=== PATIENT | male | born 1940 | race American Indian/Alaskan Native ===

== ENCOUNTER 2018-04-27 18:10 | Emergency (ER) | payer MEDICARE ==
[2018-04-27 18:33] VITALS: BMI 33.0
[2018-04-27 18:36] VITALS: RESP 16; TEMP 98.1
--- NOTE | 2018-04-27 19:03 | C.PDOC ---
History Of Present Illness 77 y/o M p/w swallowing difficulty x 1 year. Patient states when he swallows food, he feels like it gets stuck. He states he had 2 endoscopies in the past where they "went down and made it bigger." He denies any current symptoms. He denies fever, chills, dyspnea, vomiting, abdominal pain, chest pain. Time Seen by Provider: 04/27/18 18:53 Chief Complaint (Nursing): ENT Problem Past Medical History Vital Signs: Last Vital Signs Temp 98.1 F 04/27/18 18:33 Pulse 77 04/27/18 18:33 Resp 16 04/27/18 18:33 BP 143/82 04/27/18 18:33 Pulse Ox 99 04/27/18 19:03 - Medical History PMH: CHF, HTN Family History: States: Unknown Family Hx - Social History Hx Alcohol Use: No Hx Substance Use: No Review Of Systems Except As Marked, All Systems Reviewed And Found Negative. Constitutional: Negative for: Fever Cardiovascular: Negative for: Chest Pain Gastrointestinal: Negative for: Abdominal Pain Physical Exam - Physical Exam Additional Physical Exam Comments: Gen: NAD Head: NC Eyes: No scleral icterus ENT: MMM, no foreign bodies seen, no edema Neck: Supple Chest: No tenderness CV: Regular rate Lungs: CTA b/l Abd: Soft, NT Back: No CVA tenderness Extremities: No edema Skin: No rash Neuro: Alert, no focal deficit ED Course And Treatment O2 Sat by Pulse Oximetry: 99 Medical Decision Making Medical Decision Making: Chronic dysphagia without any active symptoms. Will require follow up with GI. Disposition - Disposition Referrals: Kody Li MD [Staff Provider] - Disposition: HOME/ ROUTINE Disposition Time: 19:00 Condition: STABLE Instructions: Dysphagia (DC) Forms: [employer] (Burkinan) - Clinical Impression Clinical Impression: Dysphagia
[2018-04-27 19:17] VITALS: BP 130/84; PULSE 82; O2SAT 98
== END 2018-04-27 19:17 | disposition home or self-care (01) ==
LOC: C.ER 18:10
DX: R13.10 Dysphagia, unspecified (principal)

== ENCOUNTER 2018-06-21 14:09 | Emergency (ER) | payer MEDICARE ==
[2018-06-21 14:09] VITALS: BMI 33.0
[2018-06-21 14:34] VITALS: TEMP 98.8
[2018-06-21] MEDS ORDERED: Sodium Chloride 0.9% 1,000 ML IV SCH (15:30)
[2018-06-21] MEDS ORDERED: Iodixanol 320 MG/ML 100 ML BOTTLE IV ONE (15:36)
[2018-06-21] MEDS ORDERED: Sodium Chloride 0.9% 1,000 ML ONE (15:38)
[2018-06-21 15:59] LABS: BASO % 0.8 % (0.0-2.0); EOS # 0.1 K/uL (0.0-0.7); EOS % 2.4 % (0.0-4.0); HEMOGLOBIN 11.6 g/dL (12.0-18.0); LYMPH # 1.3 K/uL (1.0-4.3); LYMPH % 25.4 % (20.0-40.0); MEAN CELL VOLUME 85.4 fL (80.0-94.0); MEAN CORPUSCULAR HEMOGLOBIN 27.8 pg (27.0-31.0); MEAN CORPUSCULAR HGB CONC 32.6 g/dL (33.0-37.0); MEAN PLATELET VOLUME 8.3 fL (7.2-11.7); MONO # 0.6 K/uL (0.0-0.8); MONO % 10.6 % (0.0-10.0); NEUT # 3.2 K/uL (1.8-7.0); NEUT % 60.8 % (50.0-75.0); RBC 4.16 Mil/uL (4.40-5.90); RED CELL DISTRIBUTION WIDTH 16.5 % (11.5-14.5); WHITE BLOOD COUNT 5.2 K/uL (4.8-10.8)
[2018-06-21 16:14] LABS: BLOOD UREA NITROGEN 16 mg/dL (9-20); CALCIUM 8.8 mg/dl (8.6-10.4); GFR NON-AFRICAN AMERICAN 59; LIPASE 117 U/L (23-300)
[2018-06-21 16:27] LABS: ALB/GLOB RATIO 1.2 (1.0-2.1); ALBUMIN 4.1 g/dL (3.5-5.0); ALT/SGPT 16 U/L (21-72); AST/SGOT 36 U/L (17-59)
[2018-06-21 16:54] LABS: SQUAMOUS EPITHIAL 1 /hpf (0-5); URINE BILIRUBIN NEGATIVE (NEGATIVE); URINE BLOOD NEGATIVE (NEGATIVE); URINE CLARITY Clear (Clear); URINE COLOR Yellow (YELLOW); URINE GLUCOSE (UA) NORMAL (Normal); URINE LEUKOCYTE ESTERASE NEG Leu/uL (Negative); URINE PROTEIN NEGATIVE (NEGATIVE)
--- NOTE | 2018-06-21 17:06 | CT ---
Date of service: 06/21/2018 PROCEDURE: CT Abdomen and Pelvis with contrast HISTORY: Lower abdominal tenderness COMPARISON: None. TECHNIQUE: Intravenous contrast dose: 100 cc Visipaque Radiation dose: Total exam DLP = 320 1316.19 mGy-cm. This CT exam was performed using one or more of the following dose reduction techniques: Automated exposure control, adjustment of the mA and/or kV according to patient size, and/or use of iterative reconstruction technique. FINDINGS: LOWER THORAX: Unremarkable. LIVER: Unremarkable. No gross lesion or ductal dilatation. GALLBLADDER AND BILE DUCTS: Unremarkable. PANCREAS: Unremarkable. No gross lesion or ductal dilatation. SPLEEN: Unremarkable. ADRENALS: Unremarkable. No mass. KIDNEYS AND URETERS: Unremarkable. No hydronephrosis. No solid mass. VASCULATURE: Unremarkable. No aortic aneurysm. Atherosclerotic calcification and mural plaque present. Findings are seen throughout the aorta and iliac arteries. BOWEL: Unremarkable. No obstruction. No gross mural thickening. APPENDIX: A normal appendix is visualized in it's entirety. PERITONEUM: Unremarkable. No free fluid. No free air. LYMPH NODES: Unremarkable. No enlarged lymph nodes. BLADDER: Unremarkable. REPRODUCTIVE: Unremarkable. BONES: No acute fracture. Multilevel degenerative change primarily affecting lower lumbar spine. OTHER FINDINGS: None. IMPRESSION: Cholelithiasis without CT evidence of acute cholecystitis. Additional benign and/or incidental findings described above.
[2018-06-21 17:08] VITALS: BP 148/86; PULSE 68; RESP 16
--- NOTE | 2018-06-21 17:09 | C.PDOC ---
History Of Present Illness 77 year old male presents to the ED complaining of lower abdominal pain since yesterday. Reports slight decrease of PO intake. Denies any vomiting, diarrhea, nausea, fever chills, or any urinary symptoms. Chief Complaint (Nursing): Abdominal Pain History Per: Patient History/Exam Limitations: no limitations Onset/Duration Of Symptoms: Hrs Current Symptoms Are (Timing): Still Present Location Of Pain/Discomfort: Suprapubic Associated Symptoms: Loss Of Appetite. denies: Fever, Chills, Nausea, Vomiting, Diarrhea Past Medical History Reviewed: Historical Data, Nursing Documentation, Vital Signs Vital Signs: Last Vital Signs Temp 98.8 F 06/21/18 14:31 Pulse 89 06/21/18 14:31 Resp 18 06/21/18 14:31 BP 95/59 L 06/21/18 14:31 Pulse Ox 99 06/21/18 14:31 - Medical History PMH: CHF, HTN Other Surgeries: Hx of surgeries Family History: States: No Known Family Hx - Social History Hx Alcohol Use: No Hx Substance Use: No Review Of Systems Except As Marked, All Systems Reviewed And Found Negative. Constitutional: Positive for: Other (decreased PO intake). Negative for: Fever, Chills Gastrointestinal: Positive for: Abdominal Pain. Negative for: Nausea, Vomiting, Diarrhea Genitourinary: Negative for: Dysuria, Hematuria Physical Exam - Physical Exam Appears: Non-toxic Skin: Warm, Dry Head: Normacephalic Eye(s): bilateral: Normal Inspection Neck: Supple Chest: Symmetrical Cardiovascular: Rhythm Regular Respiratory: Normal Breath Sounds, No Rales, No Rhonchi, No Wheezing Gastrointestinal/Abdominal: Soft, Tenderness (minimal tenderness to lower abd quadrant ), No Distention, No Guarding, No Rebound Extremity: Normal ROM Neurological/Psych: Oriented x3, Normal Speech Gait: Steady ED Course And Treatment - Laboratory Results Result Diagrams: 06/21/18 15:55 06/21/18 15:55 O2 Sat by Pulse Oximetry: 99 (RA) Pulse Ox Interpretation: Normal - CT Scan/US CT Pel Other Rad Studies (CT/US): Read By Radiologist, Radiology Report Reviewed CT/US Interpretation: Accession No. : [id number]. Patient Name / ID : CARLTON MONTANO / [id number]. Exam Date : 06/21/2018 16:45:47 ( Approved ). Study Comment : Sex / Age : M / 77Y. Creator : Arthur Raymond. Dictator : Vince Zuñiga MD. Surgical Attendant : Syrup Shed Supervisor : Vince Zuñiga MD. Approver2 : Report Date : 06/21/2018 16:55:30. My Comment : . Date of service: 06/21/2018. PROCEDURE: CT Abdomen and Pelvis with contrast. HISTORY: Lower abdominal tenderness. COMPARISON: None. TECHNIQUE: Intravenous contrast dose: 100 cc Visipaque. Radiation dose: Total exam DLP = 320 1316.19 mGy-cm. This CT exam was performed using one or more of the following dose reduction techniques: Automated exposure control, adjustment of the mA and/or kV according to patient size, and/or use of iterative reconstruction technique. FINDINGS: LOWER THORAX: Unremarkable. LIVER: Unremarkable. No gross lesion or ductal dilatation. GALLBLADDER AND BILE DUCTS: Unremarkable. PANCREAS: Unrem arkable. No gross lesion or ductal dilatation. SPLEEN: Unremarkable. ADRENALS: Unremarkable. No mass. KIDNEYS AND URETERS: Unremarkable. No hydronephrosis. No solid mass. VASCULATURE: Unremarkable. No aortic aneurysm. Atherosclerotic calcification and mural plaque present. Findings are seen throughout the aorta and iliac arteries. BOWEL: Unremarkable. No obstruction. No gross mural thickening. APPENDIX: A normal appendix is visualized in it's entirety. PERITONEUM: Unremarkable. No free fluid. No free air. LYMPH NODES: Unremarkable. No enlarged lymph nodes. BLADDER: Unremarkable. REPRODUCTIVE: Unremarkable. BONES: No acute fracture. Multilevel degenerative change prima rily affecting lower lumbar spine. OTHER FINDINGS: None. IMPRESSION: Cholelithiasis without CT evidence of acute cholecystitis. Additional benign and/or incidental findings described above. Medical Decision Making Medical Decision Making: Orders: - CT abd/pel - Labwork - UA - IV Fluids Disposition - Disposition Referrals: [facility] Eliseo Johnston, [Non-Staff] - Disposition: HOME/ ROUTINE Disposition Time: 17:20 Condition: IMPROVED Additional Instructions: DUSTY VINCENT, thank you for letting us take care of you today. The emergency medical care you received today was directed at your acute symptoms. If you were prescribed any medication, please fill it and take as directed. It may take several days for your symptoms to resolve. Return to the Emergency Department if your symptoms worsen, do not improve, or if you have any other problems. Please contact your doctor or call one of the physicians/clinics you have been referred to that are listed on the Patient Visit Information form that is included in your discharge packet. Bring any paperwork you were given at discharge with you along with any medications you are taking to your follow up visit. Our treatment cannot replace ongoing medical care by a primary care provider outside of the emergency department. Thank you for allowing the [facility] team to be part of your care today. Follow up with your primary care doctor and the specialist as scheduled for re- evaluation and further management. Prescriptions: Ibuprofen [Motrin] 600 mg PO Q6 PRN #20 tab PRN Reason: Pain, Moderate (4-7) Instructions: Acute Abdomen (Belly Pain), Adult (DC) Forms: [employer] (Danish) - Clinical Impression Clinical Impression: Abdominal pain
[2018-06-21 17:10] VITALS: O2SAT 99
== END 2018-06-21 18:03 | disposition home or self-care (01) ==
LOC: C.ER 14:09
DX: R10.9 Unspecified abdominal pain (principal); I11.0 Hypertensive heart disease with heart failure; I50.9 Heart failure, unspecified
CPT/HCPCS: 74177; 80053; 81001; 83690; 85025; 87086; 99284; J7030; Q9967

== ENCOUNTER 2018-07-05 02:15 | Inpatient (IN) | payer MEDICARE ==
[2018-07-05 02:16] VITALS: BMI 33.0
--- NOTE | 2018-07-05 02:29 | C.PDOC ---
History Of Present Illness 77 y/o male comes in complaining of dizziness x 2 days. States he feels noise in his ear and denies any fever, chills, weakness, visual changes, nausea, or vomiting. Patient is using a hearing aid in his right ear. Time Seen by Provider: 07/05/18 02:28 Chief Complaint (Nursing): Dizziness/Lightheaded History Per: Patient History/Exam Limitations: no limitations Onset/Duration Of Symptoms: Days Current Symptoms Are (Timing): Still Present Activity At Onset Of Symptoms: Standing Associated Symptoms Preceding Syncopal Episode: Lightheadedness, Vertigo Seizure Or Post-ictal Symptoms: None Fall Associated With With Symptoms: No Severity: None Pain Scale Rating Of: 0 Recent travel outside of the [place]: No Additional History Per: Patient - Symptoms Of CVA Associated Symptoms: Decreased Ability To Walk (unsteady) Recent Aspirin Use: No Current Coumadin Use?: No Recent Head Trauma: No Past Medical History Reviewed: Historical Data, Nursing Documentation, Vital Signs Vital Signs: Last Vital Signs Temp 97.8 F 07/05/18 02:19 Pulse 92 H 07/05/18 02:19 Resp 20 07/05/18 02:19 BP 165/92 H 07/05/18 02:19 Pulse Ox 98 07/05/18 02:19 - Medical History PMH: CHF, HTN Family History: States: No Known Family Hx - Social History Hx Alcohol Use: No Hx Substance Use: No Review Of Systems Constitutional: Negative for: Fever, Chills Eyes: Negative for: Vision Change ENT: Negative for: Throat Pain Cardiovascular: Negative for: Chest Pain Respiratory: Negative for: Shortness of Breath Gastrointestinal: Negative for: Nausea, Vomiting Genitourinary: Negative for: Dysuria Musculoskeletal: Negative for: Back Pain Skin: Negative for: Rash Neurological: Positive for: Dizziness. Negative for: Weakness Psych: Negative for: Anxiety Physical Exam - Physical Exam Appears: Non-toxic, No Acute Distress Skin: Warm, Dry Head: Atraumatic, Normacephalic Eye(s): bilateral: Normal Inspection Oral Mucosa: Moist Neck: Trachea Midline, Supple Chest: Symmetrical, Other (Pacer defibrillator in L chest wall) Cardiovascular: Rhythm Regular, No Murmur Respiratory: No Rales, No Rhonchi, No Wheezing Gastrointestinal/Abdominal: Bowel Sounds (normal), Soft, No Tenderness Back: No CVA Tenderness Extremity: No Tenderness, Pedal Edema, Capillary Refill (less than 2 seconds) Extremity: Bilateral: Atraumatic, Normal Color And Temperature Pulses: Left Dorsalis Pedis: Normal, Right Dorsalis Pedis: Normal Neurological/Psych: Oriented x3, Normal Speech Gait: Unsteady ED Course And Treatment - Laboratory Results Result Diagrams: 07/05/18 03:03 07/05/18 03:03 ECG: Interpreted By Me, Viewed By Me ECG Rhythm: Sinus Rhythm (85), Nonspecific Changes (LVH) O2 Sat by Pulse Oximetry: 98 (RA) Pulse Ox Interpretation: Normal - Radiology CXR: Interpreted by Me, Viewed By Me - CT Scan/US CT Head Other Rad Studies (CT/US): Read By Radiologist, Radiology Report Reviewed CT/US Interpretation: IMPRESSION: 1. 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 2. Mild chronic microvascular disease. 3. No evidence of acute i ntracranial pathology. Progress Note: CT head, EKG, labs, and chest XR ordered. Antivert administered. Disposition Discussed With DrJackie: Anuel Moreira Comment: accepted the pt on his service and took over the care at 5:32 AM Doctor Will See Patient In The: Hospital Counseled Patient/Family Regarding: Studies Performed, Diagnosis - Disposition Disposition: HOSPITALIZED Disposition Time: 02:35 Condition: FAIR Forms: [employer] (Georgian) - POA Present On Arrival: Poor Glycemic Control - Clinical Impression Clinical Impression: Dizziness, Near syncope - Scribe Statement The provider has reviewed the documentation as recorded by the Brad Moran Provider Attestation: All medical record entries made by the Brad were at my direction and personally dictated by me. I have reviewed the chart and agree that the record accurately reflects my personal performance of the history, physical exam, medical decision making, and the department course for this patient. I have also personally directed, reviewed, and agree with the discharge instructions and disposition. Decision To Admit - Pt Status Changed To: Hospital Disposition Of: Inpatient - Admit Certification Admit to Inpatient:: After my assessment, the patient will require hospitalization for at least two midnights. This is because of the severity of symptoms shown, intensity of services needed, and/or the medical risk in this patient being treated as an outpatient. - InPatient: Physician Admission Certification: I certify that this patient requires 2 or more midnights of care for the following reason:: After my assessment, the patient will require hospitalization for at least two midnights. This is because of the severity of symptoms shown, intensity of services needed, and/or the medical risk in this patient being treated as an outpatient. - . Bed Request Type: Telemetry Admitting Physician: Anuel Moreira Patient Diagnosis: Dizziness, Near syncope
[2018-07-05 03:14] LABS: BASO % 0.5 % (0.0-2.0); EOS # 0.1 K/uL (0.0-0.7); EOS % 2.1 % (0.0-4.0); HEMOGLOBIN 11.1 g/dL (12.0-18.0); LYMPH # 1.8 K/uL (1.0-4.3); MEAN CELL VOLUME 86.4 fL (80.0-94.0); MEAN CORPUSCULAR HEMOGLOBIN 28.1 pg (27.0-31.0); MEAN CORPUSCULAR HGB CONC 32.6 g/dL (33.0-37.0); MEAN PLATELET VOLUME 8.4 fL (7.2-11.7); MONO # 0.7 K/uL (0.0-0.8); MONO % 12.1 % (0.0-10.0); NEUT # 3.3 K/uL (1.8-7.0); NEUT % 55.3 % (50.0-75.0); RBC 3.93 Mil/uL (4.40-5.90); RED CELL DISTRIBUTION WIDTH 16.8 % (11.5-14.5)
[2018-07-05 03:35] LABS: PROTHROMBIN TIME 22.1 SECONDS (9.7-12.2)
[2018-07-05 03:39] LABS: ALB/GLOB RATIO 1.2 (1.0-2.1); ALBUMIN 3.9 g/dL (3.5-5.0); ALT/SGPT 21 U/L (21-72); AST/SGOT 19 U/L (17-59); BLOOD UREA NITROGEN 23 mg/dL (9-20); CALCIUM 8.6 mg/dl (8.6-10.4); GFR NON-AFRICAN AMERICAN 54
--- NOTE | 2018-07-05 09:07 | RAD ---
Date of service: 07/05/2018 HISTORY: SOB COMPARISON: None available. FINDINGS: LUNGS: No active pulmonary disease. PLEURA: No significant pleural effusion identified, no pneumothorax apparent. CARDIOVASCULAR: Calcific atherosclerotic changes are seen related to the thoracic aorta. Cardiomegaly is noted. No pulmonary vascular congestion. A pacemaker/AICD generator is identified at the left pectoralis region with 2 leads identified entering into the region of the right heart. OSSEOUS STRUCTURES: No significant abnormalities. VISUALIZED UPPER ABDOMEN: Normal. OTHER FINDINGS: None. IMPRESSION: Cardiomegaly. No pulmonary vascular congestion. Permanent pacemaker/AICD in position. No acute airspace disease bilaterally.
[2018-07-05] MEDS: Pantoprazole 40 mg EC Tab PO SCH (10:41)
[2018-07-05 11:45] LABS: CK-MB 1.48 ng/mL (0.0-3.38)
--- NOTE | 2018-07-05 11:59 | CT ---
Date of service: 07/05/2018 PROCEDURE: CT HEAD WITHOUT CONTRAST. HISTORY: R/O Bleed COMPARISON: None available. TECHNIQUE: Axial computed tomography images were obtained through the head/brain without intravenous contrast. Radiation dose: Total exam DLP = 1170.82 mGy-cm. This CT exam was performed using one or more of the following dose reduction techniques: Automated exposure control, adjustment of the mA and/or kV according to patient size, and/or use of iterative reconstruction technique. FINDINGS: HEMORRHAGE: No intracranial hemorrhage. BRAIN: The orosco-white matter differentiation is well preserved. There is no mass effect or definitive edema pattern appreciated including the cortex. There is minimal, proportional expansion of the ventriculosulcal and cisternal spaces however in a pattern most compatible with diffuse cerebral atrophy. No suspicious extra-axial fluid collection is identified in the midline brain anatomy appears grossly nonfocal as imaged. VENTRICLES: Unremarkable. No hydrocephalus. CALVARIUM: Unremarkable. PARANASAL SINUSES: Unremarkable as visualized. No significant inflammatory changes. MASTOID AIR CELLS: Unremarkable as visualized. No inflammatory changes. OTHER FINDINGS: Dense falcine calcifications identified. IMPRESSION: Minimal age related neuro degenerative findings as discussed above. No acute intracranial findings by standard CT criteria. Follow-up CT or MRI can be performed as clinically warranted. Concordant preliminary report from [facility], 07/05/2018.
--- NOTE | 2018-07-05 13:05 | CP.PCM.HP ---
Past Patient History - Past Social History Smoking Status: Never Smoked - CARDIAC Hx Congestive Heart Failure: Yes Hx Hypertension: Yes - ENDOCRINE/METABOLIC Hx Diabetes Mellitus Type 2: Yes - MUSCULOSKELETAL/RHEUMATOLOGICAL Hx Falls: No - PSYCHIATRIC Hx Substance Use: No - SURGICAL HISTORY Hx Surgeries: Yes Hx Herniorrhaphy: Yes Other/Comment: INTERNAL DEFIBRILATOR - ANESTHESIA Hx Anesthesia: Yes Hx Anesthesia Reactions: No Meds Allergies/Adverse Reactions: Allergies Allergy/AdvReac Type Severity Reaction Status Date / Time No Known Allergies Allergy Verified 07/05/18 02:17 Physical Exam - Constitutional Appears: Well - Head Exam Head Exam: ATRAUMATIC, NORMAL INSPECTION, NORMOCEPHALIC - Eye Exam Eye Exam: EOMI, Normal appearance, PERRL Pupil Exam: NORMAL ACCOMODATION, PERRL - ENT Exam ENT Exam: Mucous Membranes Moist, Normal Exam - Neck Exam Neck exam: Positive for: Normal Inspection - Respiratory Exam Respiratory Exam: Decreased Breath Sounds - Cardiovascular Exam Cardiovascular Exam: REGULAR RHYTHM, +S1, +S2 - GI/Abdominal Exam GI & Abdominal Exam: Diminished Bowel Sounds, Soft - Rectal Exam Rectal Exam: Deferred Results - Vital Signs Recent Vital Signs: Last Vital Signs Temp 98.0 F 07/05/18 08:54 Pulse 62 07/05/18 12:00 Resp 20 07/05/18 08:54 BP 122/72 07/05/18 10:40 Pulse Ox 99 07/05/18 08:54 - Labs Result Diagrams: 07/05/18 03:03 07/05/18 03:03 Labs: Laboratory Results - last 24 hr 07/05/18 07/05/18 07/05/18 02:19 03:03 03:03 WBC 6.0 RBC 3.93 L Hgb 11.1 L Hct 34.0 L MCV 86.4 MCH 28.1 MCHC 32.6 L RDW 16.8 H Plt Count 159 MPV 8.4 Neut % (Auto) 55.3 Lymph % (Auto) 30.0 Pine % (Auto) 12.1 H Eos % (Auto) 2.1 Baso % (Auto) 0.5 Neut # (Auto) 3.3 Lymph # (Auto) 1.8 Pine # (Auto) 0.7 Eos # (Auto) 0.1 Baso # (Auto) 0.0 PT 22.1 H INR 2.0 APTT 34 Sodium Potassium Chloride Carbon Dioxide Anion Gap BUN Creatinine Est GFR ( Amer) Est GFR (Non-Af Amer) POC Glucose (mg/dL) 105 Random Glucose Calcium Magnesium Total Bilirubin AST ALT Alkaline Phosphatase Total Creatine Kinase CK-MB (Mass) Troponin I Total Protein Albumin Globulin Albumin/Globulin Ratio 07/05/18 07/05/18 03:03 11:04 WBC RBC Hgb Hct MCV MCH MCHC RDW Plt Count MPV Neut % (Auto) Lymph % (Auto) Pine % (Auto) Eos % (Auto) Baso % (Auto) Neut # (Auto) Lymph # (Auto) Pine # (Auto) Eos # (Auto) Baso # (Auto) PT INR APTT Sodium 137 Potassium 3.7 Chloride 103 Carbon Dioxide 27 Anion Gap 10 BUN 23 H Creatinine 1.3 Est GFR ( Amer) > 60 Est GFR (Non-Af Amer) 54 POC Glucose (mg/dL) Random Glucose 109 Calcium 8.6 Magnesium 2.0 Total Bilirubin 0.9 AST 19 ALT 21 D Alkaline Phosphatase 91 Total Creatine Kinase 137 CK-MB (Mass) 1.48 Troponin I < 0.0120 < 0.0120 Total Protein 7.0 Albumin 3.9 Globulin 3.1 Albumin/Globulin Ratio 1.2
[2018-07-05] MEDS: guaiFENesin 200 mg/10 ml Syrup UD PO SCH ×2 (14:49→21:51)
[2018-07-05] MEDS: Belladonna-Phenobarbital PO SCH (17:30)
[2018-07-05 20:11] LABS: CK-MB 1.52 ng/mL (0.0-3.38)
[2018-07-06] MEDS: guaiFENesin 200 mg/10 ml Syrup UD PO SCH ×3 (05:52→22:11)
[2018-07-06] MEDS ORDERED: Influenza Vaccine 60 MCG/0.5 ML SYR (3 yr & up) IM ONE (10:00)
[2018-07-06] MEDS: Pantoprazole 40 mg EC Tab PO SCH (10:04)
--- NOTE | 2018-07-06 14:41 | CP.PCM.PN ---
Subjective - Date & Time of Evaluation Date of Evaluation: 07/06/18 Time of Evaluation: 10:30 - Subjective Subjective: clinically same Objective - Vital Signs/Intake and Output Vital Signs (last 24 hours): Temp Pulse Resp BP Pulse Ox 98.3 F 71 20 111/64 98 07/06/18 07:00 07/06/18 12:00 07/06/18 07:00 07/06/18 10:03 07/06/18 07:00 Intake and Output: 07/06/18 07/06/18 06:59 18:59 Intake Total 510 400 Output Total 1400 Balance -890 400 - Medications Medications: Current Medications Amiodarone HCl (Cordarone) 200 mg PO DAILY [facility] Last Admin: 07/06/18 10:04 Dose: 200 mg Belladonna/Phenobarbital () 1 tab PO ACD [facility] Last Admin: 07/05/18 17:30 Dose: 1 tab Carvedilol (Coreg) 6.25 mg PO BID [facility] Last Admin: 07/06/18 10:04 Dose: 6.25 mg Finasteride (Proscar) 5 mg PO DAILY [facility] Last Admin: 07/06/18 10:04 Dose: 5 mg Guaifenesin (Robitussin) 200 mg PO Q8H [facility] Last Admin: 07/06/18 14:02 Dose: 200 mg Ibuprofen (Motrin Tab) 600 mg PO Q6 PRN PRN Reason: Pain, moderate (4-7) Losartan Potassium (Cozaar) 50 mg PO DAILY [facility] Last Admin: 07/06/18 10:04 Dose: 50 mg Meclizine HCl (Antivert) 25 mg PO TID [facility] Last Admin: 07/06/18 14:02 Dose: 25 mg Pantoprazole Sodium (Protonix Ec Tab) 40 mg PO DAILY [facility] Last Admin: 07/06/18 10:04 Dose: 40 mg Pneumococcal Polyvalent Vaccine (Pneumovax 23 Vaccine) 0.5 ml IM .ONCE ONE Stop: 07/07/18 10:01 Rivaroxaban (Xarelto) 15 mg PO DAILY [facility] Last Admin: 07/06/18 10:18 Dose: 15 mg Rosuvastatin Calcium (Crestor) 20 mg PO HS [facility] Last Admin: 07/05/18 21:51 Dose: 20 mg Tamsulosin HCl (Flomax) 0.4 mg PO DAILY [facility] Last Admin: 07/06/18 10:04 Dose: 0.4 mg Torsemide (Demadex) 20 mg PO DAILY [facility] Last Admin: 07/06/18 10:18 Dose: 20 mg - Labs Labs: 07/05/18 03:03 07/05/18 03:03 PT 22.1 SECONDS (9.7-12.2) H 07/05/18 03:03 INR 2.0 07/05/18 03:03 APTT 34 SECONDS (21-34) 07/05/18 03:03
--- NOTE | 2018-07-06 16:37 | CP.PCM.CON ---
History of Present Illness - History of Present Illness History of Present Illness: The patient is a 77 year old man with an apparent cardiomyopathy and ICD (2006), and lives in [place]. He is followed by Dr Carmela House. The patent was visiting his sister and felt badly: he describes a vague chest neck and abdomen feeling, "like a humming", very disturbing, that comes and goes. Pt is very animated. The pt is on amiodarone and xarelto, suggesting that he has a h/o afib. the patient also describes dizziness. This sensation is at rest. Head ct is benign, ecg shows nsr, long qtc, no ischemic changes. pvc, tni are negative times three and labs are good. Review of Systems - Review of Systems All systems: reviewed and no additional remarkable complaints except (as above) Past Patient History - Past Social History Smoking Status: Never Smoked - CARDIAC Hx Cardiac Disorders: Yes Hx Hypertension: Yes - ENDOCRINE/METABOLIC Hx Diabetes Mellitus Type 2: Yes - MUSCULOSKELETAL/RHEUMATOLOGICAL Hx Falls: No - PSYCHIATRIC Hx Substance Use: No - SURGICAL HISTORY Hx Surgeries: Yes Hx Herniorrhaphy: Yes Other/Comment: INTERNAL DEFIBRILATOR - ANESTHESIA Hx Anesthesia: Yes Hx Anesthesia Reactions: No Meds Allergies/Adverse Reactions: Allergies Allergy/AdvReac Type Severity Reaction Status Date / Time No Known Allergies Allergy Verified 07/05/18 02:17 - Medications Medications: Current Medications Amiodarone HCl (Cordarone) 200 mg PO DAILY [facility] Last Admin: 07/06/18 10:04 Dose: 200 mg Belladonna/Phenobarbital () 1 tab PO ACD [facility] Last Admin: 07/05/18 17:30 Dose: 1 tab Carvedilol (Coreg) 6.25 mg PO BID [facility] Last Admin: 07/06/18 10:04 Dose: 6.25 mg Finasteride (Proscar) 5 mg PO DAILY [facility] Last Admin: 07/06/18 10:04 Dose: 5 mg Guaifenesin (Robitussin) 200 mg PO Q8H [facility] Last Admin: 07/06/18 14:02 Dose: 200 mg Ibuprofen (Motrin Tab) 600 mg PO Q6 PRN PRN Reason: Pain, moderate (4-7) Losartan Potassium (Cozaar) 50 mg PO DAILY [facility] Last Admin: 07/06/18 10:04 Dose: 50 mg Meclizine HCl (Antivert) 25 mg PO TID [facility] Last Admin: 07/06/18 14:02 Dose: 25 mg Pantoprazole Sodium (Protonix Ec Tab) 40 mg PO DAILY [facility] Last Admin: 07/06/18 10:04 Dose: 40 mg Pneumococcal Polyvalent Vaccine (Pneumovax 23 Vaccine) 0.5 ml IM .ONCE ONE Stop: 07/07/18 10:01 Rivaroxaban (Xarelto) 15 mg PO DAILY [facility] Last Admin: 07/06/18 10:18 Dose: 15 mg Rosuvastatin Calcium (Crestor) 20 mg PO HS [facility] Last Admin: 07/05/18 21:51 Dose: 20 mg Tamsulosin HCl (Flomax) 0.4 mg PO DAILY [facility] Last Admin: 07/06/18 10:04 Dose: 0.4 mg Torsemide (Demadex) 20 mg PO DAILY [facility] Last Admin: 07/06/18 10:18 Dose: 20 mg Physical Exam - Constitutional Appears: Agitated - Head Exam Head Exam: ATRAUMATIC - Eye Exam Eye Exam: EOMI - ENT Exam ENT Exam: Mucous Membranes Moist - Neck Exam Neck exam: Positive for: Normal Inspection - Respiratory Exam Respiratory Exam: Clear to Auscultation Bilateral - Cardiovascular Exam Cardiovascular Exam: REGULAR RHYTHM - GI/Abdominal Exam GI & Abdominal Exam: Normal Bowel Sounds - Exam External exam: NORMAL EXTERNAL EXAM - Extremities Exam Extremities exam: Positive for: normal inspection - Back Exam Back exam: NORMAL INSPECTION - Neurological Exam Neurological exam: Alert, CN II-XII Intact, Oriented x3, Reflexes Normal - Psychiatric Exam Psychiatric exam: Agitated, Anxious - Skin Skin Exam: Normal Color Results - Vital Signs Recent Vital Signs: Last Vital Signs Temp 98.3 F 07/06/18 15:53 Pulse 63 07/06/18 15:53 Resp 18 07/06/18 15:53 BP 121/75 07/06/18 15:53 Pulse Ox 98 07/06/18 15:53 - Labs Result Diagrams: 07/05/18 03:03 07/05/18 03:03 Labs: Laboratory Results - last 24 hr 07/05/18 07/06/18 07/06/18 19:40 06:33 11:08 POC Glucose (mg/dL) 91 83 Total Creatine Kinase 111 CK-MB (Mass) 1.52 Troponin I < 0.0120 - EKG Data EKG Interpreted by: Myself (by me, nsr, long qtc, no ischemic changes) Assessment & Plan - Assessment and Plan (Free Text) Assessment: 1. The patient clearly does not feel well, and is quite sure something is wrong, but his CV exam is normal, there is no evidence of chf, or acute coronary syndrome, his rhythm is normal, and labs good. He does not describe chest pain or pressure, but an unusual humming sensation throughout his abdomen and torso. 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
[2018-07-06 17:55] VITALS: RESP 20
[2018-07-06] MEDS: Belladonna-Phenobarbital PO SCH (17:58)
--- NOTE | 2018-07-06 21:47 | CARD ---
APPROVED REPORT Date of service: 07/05/2018 EKG Measurement Heart [id number] <Conclusion> Sinus rhythm with occasional premature ventricular complexes and fusion complexes Left ventricular hypertrophy with QRS widening Nonspecific T wave abnormality Abnormal ECG
[2018-07-07 04:28] VITALS: BP 125/73; PULSE 74; TEMP 98.3; O2SAT 99
[2018-07-07] MEDS ORDERED: Pneumococcal 23-Valent Vaccine IM ONE (10:00)
== END 2018-07-07 06:00 | disposition left against medical advice (07) | DRG 312 ==
LOC: C.ER 02:15 → C.6T 05:31
PROVIDERS: ADMIT Internal Medicine Nephrology; ATTEND Internal Medicine Nephrology
DX: R55 Syncope and collapse (principal); I42.9 Cardiomyopathy, unspecified; I11.0 Hypertensive heart disease with heart failure; E11.9 Type 2 diabetes mellitus without complications; I48.91 Unspecified atrial fibrillation; I50.9 Heart failure, unspecified